=== PATIENT | male | born 1980 | race Caucasian/White ===

== ENCOUNTER 2021-01-11 12:51 | Emergency (ER) | payer BC ==
[2021-01-11] MEDS ORDERED: Albuterol 8 GM Inhaler INH STA (12:58)
--- NOTE | 2021-01-11 13:01 | EDM.PDOC ---
ED HPI GENERAL MEDICAL PROBLEM - General Chief Complaint: Respiratory Problem Stated Complaint: HARD TO BREATHE Time Seen by Provider: 01/11/21 12:58 - History of Present Illness INITIAL COMMENTS - FREE TEXT/NARRATIVE: History of present illness: The patient got sick 10 days ago with muscle aches headache and weakness. He developed shortness of breath over the next few days. 4 days ago he began to have a cough but his headache muscle aches are better. The cough is with minimal exertion now and is short of breath at rest. He feels like he has pneumonia. He tried to use his 's nebulizer today. He has been directly exposed to COVID- 19. There is a 5-year-old in the house and 10 days ago the 5-year-old was sick for about 2 days but not as sick as the parents had been with this episode. [] Review of systems: As per history of present illness and below otherwise all systems reviewed and negative. Past medical history: As per history of present illness and as reviewed below otherwise noncontributory. Surgical history: As per history of present illness and as reviewed below otherwise noncontributory. Social history: No reported history of drug or alcohol abuse. Family history: As per history of present illness and as reviewed below otherwise noncontributory. Physical exam: Constitutional - well developed, well-nourished and in no acute distress HEENT - normocephalic, no evidence of trauma - external nose and mouth normal - no mass in neck and no JVD - mucosae moist EYES - full EOM, PERRL, no icterus - no evidence of inflammation, injection, or drainage Respiratory - no respiratory distress, equal bilateral expansion, lungs diminished breath sounds in the apices and rhonchi in the bases Cardiovascular - Regular Rhythm with S1 and S2 appreciated and no murmur, gallop or rub. GI - abdomen soft without distension or organomegaly - normal bowel sounds - no guard or rebound Musculoskeletal no gross deformity of long bones or joints - no tenderness, swelling or edema Neurologic - Alert and oriented times four - CN II-XII grossly intact - motor sensory and coordination symmetrically normal Psychiatric - appropriate mood and affect with normal thought content Hematologic - No petechiae or purpura - mucosa appropriate color and sclera not pale - normal nail bed color and refill Integument - no rash or evidence of trauma - normal turgor Diagnostics: [] Therapeutics: [] Impression: [] Plan: [] Definitive disposition and diagnosis as appropriate pending reevaluation and review of above. - Related Data Allergies Allergy/AdvReac Type Severity Reaction Status Date / Time No Known Allergies Allergy Verified 01/11/21 12:53 Home Meds: Home Meds Azithromycin 250 mg PO DAILY #6 tablet 01/11/21 [Rx] Past Medical History - Past Health History Medical/Surgical History: Denies Medical/Surgical History Other Cardiovascular History: cardiomegaly - Infectious Disease History Infectious Disease History: Reports: Chicken Pox Social & Family History - Tobacco Use Tobacco Use Status *Q: Never Tobacco User - Caffeine Use Caffeine Use: Reports: None - Recreational Drug Use Recreational Drug Use: No ED ROS GENERAL - Review of Systems Review Of Systems: Comprehensive ROS is negative, except as noted in HPI. ED EXAM, GENERAL - Physical Exam Exam: See Below Free Text/Narrative:: My physical exam is in the HPI Course - Vital Signs Last Recorded V/S: Last Vital Signs Temp 37.6 C 01/11/21 12:53 Pulse 122 H 01/11/21 12:53 Resp 20 01/11/21 12:53 BP 153/84 H 01/11/21 12:53 Pulse Ox 92 L 01/11/21 12:53 - Orders/Labs/Meds Orders: Active Orders 24 hr Category Date Time Status RT Post Treatment Assessment [RC] Click to Edit Care 01/11/21 12:58 Active RT Pre-Treatment Assessment [RC] Click to Edit Care 01/11/21 12:58 Active CORONAVIRUS COVID-19 FAIZA [MOLEC] Stat Lab 01/11/21 12:59 Stop Req Meds: Medications Discontinued Medications Generic Name Dose Route Start Last Admin Trade Name Freq PRN Reason Stop Dose Admin Albuterol 8 gm 01/11/21 12:58 01/11/21 13:10 Albuterol 8 Gm Inhaler INH 01/11/21 12:59 8 gm ONETIME STA Administration Departure - Departure Time of Disposition: 14:30 Disposition: Home, Self-Care 01 Condition: Good Clinical Impression: Exposure to COVID-19 virus, Atypical pneumonia, COVID-19 - Discharge Information Instructions: Shortness of Breath, Adult, [id number], Community-Acquired Pneumonia, Adult, [id number], COVID-19 Vaccine Information, COVID-19 Frequently Asked Questions, COVID-19 Forms: ED Department Discharge Additional Instructions: [facility] - [facility] [address] [place] [address] [facility] [address] [place] [address] The following information is given to patients seen in the emergency department who are being discharged to home. This information is to outline your options for follow-up care. We provide all patients seen in our emergency department with a follow-up referral. The need for follow-up, as well as the timing and circumstances, are variable depending upon the specifics of your emergency department visit. If you don't have a primary care physician on staff, we will provide you with a referral. We always advise you to contact your personal physician following an emergency department visit to inform them of the circumstance of the visit and for follow-up with them and/or the need for any referrals to a consulting specialist. The emergency department will also refer you to a specialist when appropriate. This referral assures that you have the opportunity for follow-up care with a specialist. All of these measure are taken in an effort to provide you with optimal care, which includes your follow-up. Under all circumstances we always encourage you to contact your private physician who remains a resource for coordinating your care. When calling for follow-up care, please make the office aware that this follow-up is from your recent emergency room visit. If for any reason you are refused follow-up, please contact the [facility] Emergency Department at and asked to speak to the emergency department charge nurse. Sepsis Event Note (ED) - Evaluation Sepsis Screening Result: No Definite Risk - Focused Exam Vital Signs: Vital Signs Temp Pulse Resp BP Pulse Ox 01/11/21 12:53 37.6 C 122 H 20 153/84 H 92 L - My Orders Last 24 Hours: My Active Orders 01/11/21 12:58 RT Post Treatment Assessment [RC] Click to Edit RT Pre-Treatment Assessment [RC] Click to Edit 01/11/21 12:59 CORONAVIRUS COVID-19 FAIZA [MOLEC] Stat - Assessment/Plan Last 24 Hours: My Active Orders 01/11/21 12:58 RT Post Treatment Assessment [RC] Click to Edit RT Pre-Treatment Assessment [RC] Click to Edit 01/11/21 12:59 CORONAVIRUS COVID-19 FAIZA [MOLEC] Stat
--- NOTE | 2021-01-11 13:49 | CR ---
For Patients: As a result of the Cures Act, medical imaging exams and procedure reports are released immediately into your electronic medical record. You may view this report before your referring provider. If you have questions, please contact your health care provider. INDICATION: Cough and shortness of breath TECHNIQUE: Chest radiograph 1 view COMPARISON: None FINDINGS: Severe degradation of image quality noted due to body habitus. Mediastinum: The mediastinum is normal in appearance. The heart silhouette is normal in size and morphology. Lung: Very small lung volumes are present with patchy ground-glass infiltrates present bilaterally. No sign of pleural effusion seen. No pneumothorax is identified. Bone and Soft tissue: Unremarkable for age. IMPRESSION: 1. Very small lung volumes are present with patchy ground-glass infiltrates present bilaterally. Clinical correlation is recommended to exclude pulmonary edema or atypical pneumonia such as COVID-19 infection. Dictated by Sav Hughes MD @ 01/11/2021 1:48:20 PM Dictated by: Sav Hughes MD @ 01/11/2021 13:48:24 (Electronically Signed)
== END 2021-01-11 14:58 | disposition home or self-care (01) ==
LOC: MW.ED 12:51
DX: U07.1 COVID-19 (principal); J12.82 Pneumonia due to coronavirus disease 2019
CPT/HCPCS: 71045; 99285; A9270